=== PATIENT | male | born 1995 | race American Indian/Alaskan Native ===

== ENCOUNTER 2021-10-03 15:50 | Emergency (ER) | payer OTHER ==
[2021-10-03] MEDS ORDERED: KETOROLAC 10 MG TAB PO ONE (17:48)
[2021-10-03] MEDS ORDERED: oxyCODONE /ACETAMINOPHEN 5-325MG TAB PO ONE (17:49)
--- NOTE | 2021-10-03 17:53 | Emergency Department Report ---
Upper Extremity - HPI Chief Complaint: Extremity Problem,Nontraumatic Stated Complaint: RIGHT HAND PAIN Time Seen by Provider: 10/03/21 17:48 Upper Extremity: Right Forearm, Right Wrist Occurred When: 3 Days Mechanism: Unsure Severity: severe Symptoms: Yes Pain with Movement, Yes Limited Range of Movement, Yes Numbness, Yes Swelling, No Deformity, No Weakness, No Bruising/Ecchymosis, No Laceration or Abrasion Other History: Patient presents emergency department with swelling right wrist pain x2 days. Described pain as sharp severe throbbing with numbness. Denies fall or injury, denies fever chills, denies being bitten denies history of arthritis gout or other joint or bone disorder. Pain does not radiate to the upper arm or shoulder, no chest pain, no shortness of breath, no headache dizziness or vision changes. ED Review of Systems ROS: Stated complaint: RIGHT HAND PAIN Other details as noted in HPI Comment: All other systems reviewed and negative Constitutional: no symptoms reported Eyes: denies: eye pain ENT: denies: ear pain Respiratory: denies: cough, orthopnea Cardiovascular: denies: chest pain, palpitations, edema Endocrine: denies: excessive sweating, intolerance to cold, intolerance to heat Gastrointestinal: denies: abdominal pain, nausea, vomiting Skin: denies: rash, lesions Neurological: numbness. denies: headache, weakness Psychiatric: denies: anxiety ED Past Medical Hx - Medications Home Medications: Home Medications Medication Instructions Recorded Confirmed Last Taken Type Diclofenac Dr [Voltaren Dr] 75 mg PO BID PRN #20 tablet 10/03/21 Unknown Rx traMADoL [Ultram 50 MG tab] 50 mg PO Q6HR PRN #12 tablet 10/03/21 Unknown Rx Upper Extremity Exam - Exam General: Vital signs noted. No distress. Alert and acting appropriately. Head and Torso: No HEENT Abnormality, No Neck Tenderness, No Chest/Lungs Abnormality, No Abdominal Tenderness, No Back Tenderness Shoulder Exam: No Shoulder Tenderness, No Clavicle Tenderness, No Normal Range of Motion in Shoulder, No Shoulder Deformity, No AC Joint Tenderness Arm Exam: No Arm/Humerus Tenderness, No Arm Deformity Elbow: No Elbow Tenderness, No Normal Range of Motion in Elbow, No Elbow Deformity Forearm: Yes Pain with Pronation, Yes Pain with Supination, No Forearm Tenderness, No Forearm Deformity Wrist: Yes Wrist Tenderness, No Normal ROM in Wrist, No Wrist Deformity, No Snuffbox Tenderness, No Pain with Axial Thumb Compression Hand: Yes Hand Tenderness, No Hand Deformity, No Digit Tenderness, No Normal ROM in Digit(s), No Digit(s) Deformity, No Tendon Dysfunction CMS Exam: Yes Normal Distal Pulses, Yes Normal Capillary Refill, Yes Normal Distal Sensation, No Broken Skin Hand L/R Back: 1 - Swelling pain tenderness. Limited ROM. ED Course Vital Signs 10/03/21 17:43 Temperature 97.7 F Pulse Rate 89 Respiratory 18 Rate Blood Pressure 166/111 [Right] O2 Sat by Pulse 99 Oximetry ED Medical Decision Making - Medical Decision Making Described pain as sharp severe throbbing with numbness. Denies fall or injury, denies fever chills, denies being bitten denies history of arthritis gout or other joint or bone disorder. Pain does not radiate to the upper arm or shoulder, no chest pain, no shortness of breath, no headache dizziness or vision changes. X-rays are negative for any acute fractures or dislocation, on exam there is no warmth, no erythema, no signs of any acute infection. Differential diagnosis includes arthritis, gout, Symptoms of been addressed in the ER with improvement, discharged home with s upportive therapy, NSAIDs, few tablets of opioid, and orthopedic referral. Patient remained stable nontoxic-appearing, afebrile, ambulating steadily without assistance. Gone over ED findings with patient as well as plan for follow-up. Also discussed return precautions with patient, all questions and concerns addressed. Patient is stable to be discharged follow-up outpatient. Audio voice dictation device used, hence the chart might contain some dictation errors, mispronunciations, wrong spelling and wrong verbiage. Critical care attestation.: If time is entered above; I have spent that time in minutes in the direct care of this critically ill patient, excluding procedure time. ED Disposition Clinical Impression: Arthralgia of wrist, right Disposition: HOME / SELF CARE / HOMELESS Is pt being admited?: No Does the pt Need Aspirin: No Condition: Stable Instructions: Wrist Pain, Adult Referrals: FRANCESCO SNYDER MD [Staff Physician] - 3-5 Days Forms: Work/School Release Form(ED)
--- NOTE | 2021-10-03 18:12 | XRay Report ---
Right wrist 3 views INDICATION: Right wrist pain FINDINGS: Carpal bone alignment appears normal. No acute fracture dislocation. No focal soft tissue s welling Signer Name: Alberto Mcdaniels MD Signed: 10/03/2021 6:08 PM Workstation Name: [id number]
[2021-10-03 21:02] VITALS: BP 154/88
== END 2021-10-03 21:52 | disposition home or self-care (01) ==
LOC: ED 15:50
DX: M25.531 Pain in right wrist (principal)
CPT/HCPCS: 99283